=== PATIENT | female | born 1970 | race Caucasian/White ===

== ENCOUNTER → 2017-10-03 | Outpatient (CLI) | payer BC ==
[2006-06-28 07:45] VITALS: TEMP 97.8
== END ==
LOC: MC.RAD 09-03 10:00
DX: Z12.31 Encounter for screening mammogram for malignant neoplasm of breast (principal)

== ENCOUNTER → 2020-11-02 | Outpatient (CLI) | payer BC ==
[2006-06-28 07:45] VITALS: TEMP 97.8
== END ==
LOC: MC.RAD 10-20 07:00
DX: Z12.31 Encounter for screening mammogram for malignant neoplasm of breast (principal)

== ENCOUNTER → 2021-12-28 | Outpatient (CLI) | payer BC ==
[2006-06-28 07:45] VITALS: TEMP 97.8
== END ==
LOC: COL.RAD 11:42
DX: D25.9 Leiomyoma of uterus, unspecified (principal)